=== PATIENT | male | born 1965 | race Caucasian/White ===

== ENCOUNTER 2021-11-14 12:57 | Emergency (ER) | payer OTHER ==
[2021-11-14] MEDS ORDERED: Aspirin 81 MG Tab.Chew PO ONE (14:23)
[2021-11-14] MEDS ORDERED: Metoprolol Tartrate 5 MG/5 ML SDV IVPUSH ONE (14:24)
[2021-11-14] MEDS ORDERED: Metoprolol Tartrate 25 MG Tab PO ONE (15:20)
[2021-11-14] MEDS ORDERED: Heparin Sodium/D5W 25,000 UNITS/500 ML BAG IV SCH (15:30)
[2021-11-14 15:31] LABS: CORONAVIRUS COVID-19 NAA NEGATIVE (NEGATIVE)
[2021-11-14 15:38] VITALS: PULSE 83
[2021-11-14] MEDS ORDERED: Heparin Sodium 5,000 Units/ML Vial IVPUSH ONE (15:44)
[2021-11-14 15:50] VITALS: BP 139/82
== END 2021-11-14 16:56 ==
LOC: JP.ED 12:57
DX: I24.9 Acute ischemic heart disease, unspecified (principal); I47.1 Supraventricular tachycardia; I21.4 Non-ST elevation (NSTEMI) myocardial infarction; I10 Essential (primary) hypertension; E78.5 Hyperlipidemia, unspecified; E66.9 Obesity, unspecified; Z68.37 Body mass index [BMI] 37.0-37.9, adult; Z79.899 Other long term (current) drug therapy; Z20.822 Contact with and (suspected) exposure to COVID-19
CPT/HCPCS: 0241U; 36415; 71045; 71045-26; 80048; 84484; 85025; 85730; 93005; 93010; 96365; 99284; 99285-25; A9270-GY; J1644

== ENCOUNTER 2022-05-31 09:23 | Emergency (ER) | payer OTHER ==
[2022-05-31] MEDS ORDERED: Sodium Chloride 0.9% 10 ML Syringe FLUSH PRN (10:08)
[2022-05-31] MEDS ORDERED: Morphine 4 MG/ML Syringe IVPUSH PRN (10:08)
[2022-05-31] MEDS ORDERED: Nitroglycerin 0.4 MG Tab.SL SL PRN (10:08)
[2022-05-31] MEDS ORDERED: Aspirin 81 MG Tab.Chew PO ONE (10:08)
[2022-05-31 10:47] LABS: ESTIMATED GFR 108 mL/min (>60); TROPONIN I HIGH SENSITIVITY 6.2 pg/mL (<=60.3)
[2022-05-31] MEDS ORDERED: Alum Hydrox/Mag Hydrox/Simeth 15 ML, Lidocaine 2% 15 ML PO ONE ×2 (10:56)
[2022-05-31 12:25] VITALS: BP 133/82; PULSE 72
== END 2022-05-31 12:52 | disposition home or self-care (01) ==
LOC: JP.ED 09:23
DX: K21.9 Gastro-esophageal reflux disease without esophagitis (principal); I25.10 Atherosclerotic heart disease of native coronary artery without angina pectoris; E78.00 Pure hypercholesterolemia, unspecified; I25.2 Old myocardial infarction; E66.9 Obesity, unspecified; Z68.38 Body mass index [BMI] 38.0-38.9, adult; Z79.82 Long term (current) use of aspirin; Z79.899 Other long term (current) drug therapy; Z87.891 Personal history of nicotine dependence
CPT/HCPCS: 36415; 71045; 80053; 84484; 85025; 93005; 96374; 99284; A9270; J2270

== ENCOUNTER 2022-06-11 08:01 | Inpatient (IN) | payer OTHER ==
[2022-06-11] MEDS ORDERED: Sodium Chloride 0.9% 10 ML Syringe FLUSH PRN (08:47)
[2022-06-11] MEDS ORDERED: Ondansetron 4 MG/2 ML SDV IVPUSH ONE (08:47)
[2022-06-11] MEDS ORDERED: Sodium Chloride 0.9% 500 ML IV ONE (08:58)
[2022-06-11 09:57] LABS: ESTIMATED GFR 108 mL/min (>60)
[2022-06-11] MEDS ORDERED: Morphine 2 MG/ML SYRINGE IVPUSH ONE (10:01)
[2022-06-11] MEDS ORDERED: Gadoteridol 279.3 MG/ML 20 ML SDV IV SCH (11:00)
[2022-06-11] MEDS ORDERED: Metoclopramide 10 MG/2 ML SDV IVPUSH ONE (11:33)
[2022-06-11] MEDS ORDERED: HYDROmorphone 0.5 MG/0.5 ML Syringe IVPUSH ONE ×2 (11:33→14:45)
[2022-06-11] MEDS: Pantoprazole 40 MG Vial IV SCH (17:52)
[2022-06-11] MEDS: Lactated Ringers 1,000 ML IV SCH (17:52)
[2022-06-11] MEDS: Acetaminophen 325 MG Tab PO PRN ×2 (17:52→22:01)
[2022-06-11] MEDS: oxyCODONE 5 MG Tab PO PRN ×2 (17:52→22:02)
[2022-06-11] MEDS: LORazepam 0.5 MG Tab PO SCH (20:31)
[2022-06-11] MEDS: Ticagrelor 90 MG Tab PO SCH (20:31)
[2022-06-12] MEDS: Lactated Ringers 1,000 ML IV SCH ×3 (02:04→19:40)
[2022-06-12] MEDS: oxyCODONE 5 MG Tab PO PRN ×5 (02:15→21:55)
[2022-06-12] MEDS: Acetaminophen 325 MG Tab PO PRN ×2 (04:58→16:53)
[2022-06-12] MEDS: Pantoprazole 40 MG Vial IV SCH ×2 (06:12→17:23)
[2022-06-12 06:35] LABS: ESTIMATED GFR 108 mL/min (>60)
[2022-06-12] MEDS ORDERED: atorvaSTATin 20 MG Tab PO SCH (09:00)
[2022-06-12] MEDS ORDERED: LORazepam 0.5 MG Tab PO PRN (09:31)
[2022-06-12] MEDS ORDERED: fentaNYL 100 MCG/2 ML SDV ONE (10:40)
[2022-06-12] MEDS ORDERED: Midazolam 1 MG/ML 2 ML SDV ONE (10:40)
[2022-06-12] MEDS ORDERED: Propofol 200 MG/20 ML SDV ONE (10:40)
[2022-06-12] MEDS ORDERED: Sodium Chloride 0.9% 500 ML ONE (10:42)
[2022-06-12] MEDS: atorvaSTATin 20 MG Tab PO SCH (12:00)
[2022-06-12] MEDS: Aspirin 81 MG Tab.EC PO SCH (12:00)
[2022-06-12] MEDS: Lisinopril 20 MG Tab PO SCH (12:00)
[2022-06-12] MEDS: Ticagrelor 90 MG Tab PO SCH ×2 (12:00→21:54)
[2022-06-12] MEDS: LORazepam 0.5 MG Tab PO SCH (21:54)
[2022-06-12] MEDS: Docusate Sodium 100 MG Cap PO PRN (21:57)
[2022-06-13] MEDS: Acetaminophen 325 MG Tab PO PRN ×4 (00:57→19:39)
[2022-06-13] MEDS: oxyCODONE 5 MG Tab PO PRN ×5 (03:24→21:58)
[2022-06-13] MEDS: Lactated Ringers 1,000 ML IV SCH (03:33)
[2022-06-13 05:07] LABS: ESTIMATED GFR 113 mL/min (>60)
[2022-06-13] MEDS: Pantoprazole 40 MG Vial IV SCH ×2 (05:25→17:44)
[2022-06-13] MEDS: Ondansetron 4 MG Tab.DIS PO PRN ×3 (07:39→19:39)
[2022-06-13] MEDS: Docusate Sodium 100 MG Cap PO PRN (07:39)
[2022-06-13] MEDS: Ticagrelor 90 MG Tab PO SCH ×2 (09:56→21:58)
[2022-06-13] MEDS: Lisinopril 20 MG Tab PO SCH (09:56)
[2022-06-13] MEDS: atorvaSTATin 20 MG Tab PO SCH (09:56)
[2022-06-13] MEDS: Aspirin 81 MG Tab.EC PO SCH (09:56)
[2022-06-13] MEDS ORDERED: Magnesium Hydroxide 400 MG/5 ML Susp 30 ML Cup PO ONE (11:00)
[2022-06-13] MEDS: Gabapentin 100 MG Cap PO SCH (11:26)
[2022-06-13] MEDS: Gabapentin 300 MG Cap PO SCH (21:58)
[2022-06-14] MEDS: Acetaminophen 325 MG Tab PO PRN ×4 (02:11→23:30)
[2022-06-14] MEDS: oxyCODONE 5 MG Tab PO PRN ×6 (02:12→23:30)
[2022-06-14] MEDS: Pantoprazole 40 MG Vial IV SCH ×2 (06:33→17:03)
[2022-06-14] MEDS: Gabapentin 100 MG Cap PO SCH (08:00)
[2022-06-14] MEDS: Aspirin 81 MG Tab.EC PO SCH (08:00)
[2022-06-14] MEDS: atorvaSTATin 20 MG Tab PO SCH (08:01)
[2022-06-14] MEDS: Lisinopril 20 MG Tab PO SCH (08:01)
[2022-06-14] MEDS: Ticagrelor 90 MG Tab PO SCH ×2 (08:01→22:01)
[2022-06-14 09:02] LABS: ESTIMATED GFR 104 mL/min (>60)
[2022-06-14] MEDS ORDERED: Bisacodyl 10 MG Supp RECTAL ONE (10:30)
[2022-06-14] MEDS: Ondansetron 4 MG Tab.DIS PO PRN ×2 (11:03→17:03)
[2022-06-14] MEDS ORDERED: Magnesium Citrate Solution 296 ML Bottle PO ONE (17:36)
[2022-06-14] MEDS: Dextrose 5%-Lactated Ringers 1,000 ML IV SCH (20:43)
[2022-06-14] MEDS: Gabapentin 300 MG Cap PO SCH (22:02)
[2022-06-15] MEDS: Acetaminophen 325 MG Tab PO PRN (03:51)
[2022-06-15] MEDS: oxyCODONE 5 MG Tab PO PRN ×4 (03:51→20:32)
[2022-06-15 05:22] LABS: ESTIMATED GFR 104 mL/min (>60)
[2022-06-15] MEDS: Pantoprazole 40 MG Vial IV SCH ×2 (05:27→18:10)
[2022-06-15] MEDS ORDERED: Lidocaine 1% with EPINEPHrine 1:100,000 50 ML MDV ONE (06:59)
[2022-06-15] MEDS ORDERED: Bupivacaine 0.5% 30 ML SDV ONE (06:59)
[2022-06-15] MEDS ORDERED: Ketamine 18 MG in Sodium Chloride 0.9% 19.82 ML IV SCH (07:00)
[2022-06-15] MEDS ORDERED: Ropivacaine 50 ML, dexAMETHasone 8 MG, EPINEPHrine 0.4 MG, Sodium Chloride 0.9% 27.6 ML NERVRT SCH ×4 (07:00)
[2022-06-15] MEDS ORDERED: cefOXitin 2 GM in Sodium Chloride 0.9% 50 ML IV ONE (07:00)
[2022-06-15] MEDS ORDERED: Ketamine 500 MG/5 ML MDV IV SCH (07:00)
[2022-06-15] MEDS ORDERED: fentaNYL 250 MCG/5 ML SDV ONE ×2 (07:18→09:28)
[2022-06-15] MEDS ORDERED: Ondansetron 4 MG/2 ML SDV ONE (07:19)
[2022-06-15] MEDS ORDERED: Glycopyrrolate 0.2 MG/ML 5 ML MDV ONE (07:19)
[2022-06-15] MEDS ORDERED: Propofol 200 MG/20 ML SDV ONE (07:19)
[2022-06-15] MEDS ORDERED: Neostigmine Methylsulfate 1 MG/ML 5 ML Syringe ONE (07:19)
[2022-06-15] MEDS ORDERED: Dexamethasone 4 MG/ML SDV ONE (07:19)
[2022-06-15] MEDS ORDERED: Succinylcholine 200 MG/10 ML MDV ONE (07:19)
[2022-06-15] MEDS ORDERED: Rocuronium 50 MG/5 ML Vial ONE (07:19)
[2022-06-15] MEDS ORDERED: Labetalol 20 MG/4 ML Syringe ONE (09:51)
[2022-06-15] MEDS: Dextrose 5%-Lactated Ringers 1,000 ML IV SCH ×2 (11:53→23:11)
[2022-06-15] MEDS: Aspirin 81 MG Tab.EC PO SCH (12:31)
[2022-06-15] MEDS: Ticagrelor 90 MG Tab PO SCH ×2 (12:31→20:32)
[2022-06-15] MEDS: atorvaSTATin 20 MG Tab PO SCH (12:31)
[2022-06-15] MEDS: Lisinopril 20 MG Tab PO SCH (12:32)
[2022-06-15] MEDS: Gabapentin 100 MG Cap PO SCH (12:32)
[2022-06-15] MEDS: cefOXitin 2 GM in Sodium Chloride 0.9% 50 ML IV SCH ×2 (14:31→19:20)
[2022-06-15] MEDS: Acetaminophen 500 MG Tab PO SCH ×2 (14:35→19:20)
[2022-06-15] MEDS ORDERED: Sodium Phosphate,Monobasic/Sodium Phosphate,Dibasic Enema 133 ML Bottle RECTAL ONE (14:40)
[2022-06-15] MEDS ORDERED: Desmopressin 20 MCG in Sodium Chloride 0.9% 50 ML IV SCH (20:30)
[2022-06-15] MEDS: Gabapentin 300 MG Cap PO SCH (20:32)
[2022-06-15] MEDS: HYDROmorphone 0.5 MG/0.5 ML Syringe IVPUSH PRN (21:54)
[2022-06-16] MEDS: cefOXitin 2 GM in Sodium Chloride 0.9% 50 ML IV SCH (00:22)
[2022-06-16] MEDS: Acetaminophen 500 MG Tab PO SCH ×4 (02:20→22:44)
[2022-06-16 05:35] LABS: ESTIMATED GFR 104 mL/min (>60)
[2022-06-16] MEDS: Pantoprazole 40 MG Vial IV SCH ×2 (05:35→18:38)
[2022-06-16] MEDS: oxyCODONE 5 MG Tab PO PRN ×3 (07:59→19:19)
[2022-06-16] MEDS: atorvaSTATin 20 MG Tab PO SCH (08:18)
[2022-06-16] MEDS: Lisinopril 20 MG Tab PO SCH (08:19)
[2022-06-16] MEDS: Aspirin 81 MG Tab.EC PO SCH (08:19)
[2022-06-16] MEDS: Gabapentin 100 MG Cap PO SCH (08:19)
[2022-06-16] MEDS: Dextrose 5%-Lactated Ringers 1,000 ML IV SCH (08:23)
[2022-06-16] MEDS ORDERED: Bisacodyl 5 MG Tab PO ONE ×2 (09:00→20:00)
[2022-06-16 11:09] LABS: BASOS 0 % (Not Estab.); EOS 0 % (Not Estab.); HEMATOCRIT 22.3 % (37.5-51.0); HEMOGLOBIN 7.2 g/dL (13.0-17.7); IMMATURE GRANS (ABS) 0.4 x10E3/uL (0.0-0.1); IMMATURE GRANULOCYTES 5 % (Not Estab.); LYMPHS 13 % (Not Estab.); MCH 31.9 pg (26.6-33.0); MCHC 32.3 g/dL (31.5-35.7); MCV 99 fL (79-97); MONOCYTES 8 % (Not Estab.); MONOCYTES(ABSOLUTE) 0.6 x10E3/uL (0.1-0.9); NEUTROPHILS 74 % (Not Estab.); NEUTROPHILS (ABSOLUTE) 5.6 x10E3/uL (1.4-7.0); NRBC 3 % (0 - 0); PLATELETS 108 x10E3/uL (150-450); RBC 2.26 x10E6/uL (4.14-5.80); RDW 17.2 % (11.6-15.4); WBC 7.8 x10E3/uL (3.4-10.8); WBC Appear normal. (.)
[2022-06-16] MEDS: Desmopressin 20 MCG in Sodium Chloride 0.9% 50 ML IV SCH (14:26)
[2022-06-16] MEDS ORDERED: Polyethylene Glycol 3350 Powder 238 GM Bot PO ONE (17:00)
[2022-06-16] MEDS: Acetaminophen 325 MG Tab PO PRN (19:18)
[2022-06-16] MEDS: Gabapentin 300 MG Cap PO SCH (20:25)
[2022-06-17] MEDS ORDERED: Polyethylene Glycol 3350 Powder 238 GM Bot PO ONE (00:14)
[2022-06-17] MEDS: Dextrose 5%-Lactated Ringers 1,000 ML IV SCH (00:29)
[2022-06-17] MEDS: oxyCODONE 5 MG Tab PO PRN ×5 (02:46→21:07)
[2022-06-17] MEDS: Acetaminophen 500 MG Tab PO SCH ×3 (02:47→14:00)
[2022-06-17 05:20] LABS: ESTIMATED GFR 108 mL/min (>60)
[2022-06-17] MEDS: Pantoprazole 40 MG Vial IV SCH ×2 (06:02→18:13)
[2022-06-17] MEDS: Acetaminophen 325 MG Tab PO PRN ×4 (06:44→21:08)
[2022-06-17] MEDS ORDERED: fentaNYL 100 MCG/2 ML SDV ONE (07:21)
[2022-06-17] MEDS ORDERED: Midazolam 1 MG/ML 2 ML SDV ONE (07:21)
[2022-06-17] MEDS ORDERED: Propofol 200 MG/20 ML SDV ONE (07:22)
[2022-06-17] MEDS: Dextrose 5%-0.9% NaCl 1,000 ML IV SCH ×2 (07:51→18:14)
[2022-06-17] MEDS: Magnesium Sulfate/Water 2 GM/50 ML BAG IV SCH ×3 (07:52→19:40)
[2022-06-17] MEDS: Ondansetron 4 MG/2 ML SDV IV PRN (08:40)
[2022-06-17] MEDS: Lisinopril 20 MG Tab PO SCH (09:09)
[2022-06-17] MEDS: Aspirin 81 MG Tab.EC PO SCH (12:47)
[2022-06-17] MEDS: Gabapentin 100 MG Cap PO SCH (12:47)
[2022-06-17] MEDS: Desmopressin 20 MCG in Sodium Chloride 0.9% 50 ML IV SCH (14:08)
[2022-06-17] MEDS: HYDROmorphone 0.5 MG/0.5 ML Syringe IVPUSH PRN ×2 (18:35→22:38)
[2022-06-17] MEDS: Gabapentin 300 MG Cap PO SCH (21:08)
[2022-06-17] MEDS: Sucralfate Suspension 1 GM/10 ML Cup PO SCH (21:12)
[2022-06-18] MEDS: Acetaminophen 325 MG Tab PO PRN ×4 (02:15→15:37)
[2022-06-18] MEDS: oxyCODONE 5 MG Tab PO PRN ×4 (02:15→15:11)
[2022-06-18] MEDS: Magnesium Sulfate/Water 2 GM/50 ML BAG IV SCH ×3 (02:16→16:04)
[2022-06-18] MEDS: Dextrose 5%-0.9% NaCl 1,000 ML IV SCH (03:53)
[2022-06-18 04:49] LABS: ESTIMATED GFR 113 mL/min (>60)
[2022-06-18] MEDS: HYDROmorphone 0.5 MG/0.5 ML Syringe IVPUSH PRN ×3 (05:37→16:03)
[2022-06-18] MEDS: Sucralfate Suspension 1 GM/10 ML Cup PO SCH ×2 (05:37→09:22)
[2022-06-18] MEDS: Pantoprazole 40 MG Vial IV SCH (05:38)
[2022-06-18] MEDS: Aspirin 81 MG Tab.EC PO SCH (09:21)
[2022-06-18] MEDS: Lisinopril 20 MG Tab PO SCH (09:21)
[2022-06-18] MEDS: Gabapentin 100 MG Cap PO SCH (09:21)
[2022-06-18] MEDS: Ondansetron 4 MG/2 ML SDV IV PRN (12:16)
[2022-06-18] MEDS: Desmopressin 20 MCG in Sodium Chloride 0.9% 50 ML IV SCH (13:57)
[2022-06-18 14:11] VITALS: PULSE 93
[2022-06-18 14:12] VITALS: BP 151/74
== END 2022-06-18 16:25 | DRG 356 ==
LOC: JP.ED 08:01 → JP.MS 16:14
PROVIDERS: ADMIT Internal Medicine; ATTEND Hospitalist
PROC: 30233N1 Transfusion of Nonautologous Red Blood Cells into Peripheral Vein, Percutaneous Approach (ICD-10-PCS; 2022-06-11)
PROC: 0DB48ZX Excision of Esophagogastric Junction, Via Natural or Artificial Opening Endoscopic, Diagnostic (ICD-10-PCS; 2022-06-12)
PROC: 0FT44ZZ Resection of Gallbladder, Percutaneous Endoscopic Approach (ICD-10-PCS; 2022-06-15)
PROC: 0FB24ZX Excision of Left Lobe Liver, Percutaneous Endoscopic Approach, Diagnostic (ICD-10-PCS; 2022-06-15)
PROC: 0WBF4ZX Excision of Abdominal Wall, Percutaneous Endoscopic Approach, Diagnostic (ICD-10-PCS; 2022-06-15)
PROC: 0DBL8ZX Excision of Transverse Colon, Via Natural or Artificial Opening Endoscopic, Diagnostic (ICD-10-PCS; principal; 2022-06-17)
DX: C15.9 Malignant neoplasm of esophagus, unspecified (principal); D65 Disseminated intravascular coagulation [defibrination syndrome]; K57.31 Diverticulosis of large intestine without perforation or abscess with bleeding; K81.0 Acute cholecystitis; C78.6 Secondary malignant neoplasm of retroperitoneum and peritoneum; C78.7 Secondary malignant neoplasm of liver and intrahepatic bile duct; R18.8 Other ascites; E87.1 Hypo-osmolality and hyponatremia; Z20.822 Contact with and (suspected) exposure to COVID-19; K52.9 Noninfective gastroenteritis and colitis, unspecified; K82.8 Other specified diseases of gallbladder; D69.6 Thrombocytopenia, unspecified; K21.9 Gastro-esophageal reflux disease without esophagitis; K44.9 Diaphragmatic hernia without obstruction or gangrene; Z87.891 Personal history of nicotine dependence; Z90.49 Acquired absence of other specified parts of digestive tract; I25.2 Old myocardial infarction; Z95.5 Presence of coronary angioplasty implant and graft; Z79.02 Long term (current) use of antithrombotics/antiplatelets; Z79.82 Long term (current) use of aspirin; Z79.899 Other long term (current) drug therapy
CPT/HCPCS: 36415; 36430; 72148; 72148-26; 73502-26-LT; 73502-LT; 74183; 74183-26; 78227; 78227-26; 80053; 81001; 82248; 82378; 82533; 82728; 83010; 83550; 83615; 83735; 83880; 84100; 84443; 85018; 85025; 85027; 85045; 85060; 85379; 85384; 85610; 85730; 86140; 86301; 86850; 86880; 86900; 86901; 86920; 86922; 87046; 87177; 87209; 87493; 87899; 88112; 88304; 88305; 88307; 88313; 88341; 88342; 89055; 96374; 96375; 96376; 97116-GP; 97161-GP; 99284; 99285-25; A9270-GY; A9579; C9113; G0103; J0171; J0330; J0694; J1100; J1170; J2250; J2270; J2405; J2597; J2704; J2710; J2765; J2795; J3010; J3475; J3490; J7040; J7120; J7121; P9016; Q0162; U0002

== ENCOUNTER 2022-07-18 21:36 | Emergency (ER) | payer OTHER ==
[2022-07-18 21:52] VITALS: BP 133/81; PULSE 118
[2022-07-18] MEDS ORDERED: HYDROmorphone 1 MG/ML Syringe IVPUSH ONE ×2 (22:17→23:27)
[2022-07-18 22:58] LABS: ESTIMATED GFR 104 mL/min (>60)
== END 2022-07-19 00:12 ==
LOC: JP.ED 21:36
DX: C15.5 Malignant neoplasm of lower third of esophagus (principal); C79.9 Secondary malignant neoplasm of unspecified site; D61.810 Antineoplastic chemotherapy induced pancytopenia; T45.1X5A Adverse effect of antineoplastic and immunosuppressive drugs, initial encounter; R18.0 Malignant ascites; I25.10 Atherosclerotic heart disease of native coronary artery without angina pectoris; E78.00 Pure hypercholesterolemia, unspecified; I10 Essential (primary) hypertension; I25.2 Old myocardial infarction; K21.9 Gastro-esophageal reflux disease without esophagitis; E66.9 Obesity, unspecified; Z79.899 Other long term (current) drug therapy; Z87.891 Personal history of nicotine dependence; Z20.822 Contact with and (suspected) exposure to COVID-19; Z68.38 Body mass index [BMI] 38.0-38.9, adult
CPT/HCPCS: 36415; 71046; 80053; 85025; 85610; 85730; 87635; 96374; 96376; 99285; C1751; J1170; J1642; U0002

== ENCOUNTER → 2022-08-01 | Day surgery (SDC) | payer OTHER | LOC: JP.SDS 06:00 | PROVIDERS: ATTEND Surgery | DX: R18.8 Other ascites (principal); Z79.899 Other long term (current) drug therapy | CPT/HCPCS: 49083 ==

== ENCOUNTER 2022-08-02 11:59 | Emergency (ER) | payer OTHER ==
[2022-08-02 13:32] VITALS: BP 123/92; PULSE 91
== END 2022-08-02 14:47 | disposition home or self-care (01) ==
LOC: JP.ED 11:59
DX: R53.0 Neoplastic (malignant) related fatigue (principal); I25.10 Atherosclerotic heart disease of native coronary artery without angina pectoris; I10 Essential (primary) hypertension; E66.9 Obesity, unspecified; Z68.37 Body mass index [BMI] 37.0-37.9, adult; Z79.899 Other long term (current) drug therapy; Z90.49 Acquired absence of other specified parts of digestive tract
CPT/HCPCS: 36415; 85027; 86850; 86900; 86901; 99284